=== PATIENT | male | born 1960 | race Caucasian/White ===

== ENCOUNTER 2020-04-22 16:53 | Inpatient (IN) ==
[2020-04-22] MEDS ORDERED: Isovue-370 500 ML BOTTLE IVP ONE (17:52)
[2020-04-22 17:57] LABS: Basophils # 0.1 K/mcL (0.0-0.2); Basophils % 0.5 %; Eosinophils % 0.4 %; Hematocrit 39.1 % (37.5-50.1); Hemoglobin 12.9 g/dL (12.9-16.9); Immature Granulocytes % 0.5 % (0-4); Lymphocytes # 2.9 K/mcL (0.6-4.6); Lymphocytes % 26.5 %; Mean Platelet Volume 10.8 fL (9.4-12.4); Monocytes # 0.9 K/mcL (0.0-1.3); Monocytes % 8.1 %; Platelet Count 411 K/mcL (140-400); Red Blood Count 3.91 M/mcL (4.19-5.50); Red Cell Distribution Width 13.7 % (11.5-14.5); White Blood Count 10.9 K/mcL (4.3-11.1)
[2020-04-22 18:14] LABS: BUN/Creatinine Ratio 15 (6-26); Blood Urea Nitrogen 13 mg/dL (8-23); C-Reactive Protein 10 mg/L (Less than 10); Calcium 9.1 mg/dL (8.6-10.3); Carbon Dioxide 29 mEq/L (23-29); Chloride 96 mEq/L (98-107); Glucose 184 mg/dL (70-105); Osmolality,Calculated 279 (280-300); Potassium 4.3 mEq/L (3.5-5.1); Sodium 132 mEq/L (136-145); eGFR For African Americans > 60 (> 60); eGFR For Non-African Americans > 60 (> 60)
[2020-04-22] MEDS ORDERED: Vancomycin 1,250 MG/262.5 ML IV.SOLN IVPB ONE (18:34)
[2020-04-22] MEDS ORDERED: *HR* HYDROcodone/Acet 5/325 mg TABLET PO ONE (18:35)
[2020-04-22] MEDS ORDERED: *HR* FentaNYL (PF) 100 MCG/2 ML VIAL IVP ONE (19:41)
[2020-04-22] MEDS ORDERED: Naloxone 0.4 MG/ML INJ IVP PRN (20:35)
[2020-04-22] MEDS ORDERED: Acetaminophen 325 MG TABLET PO PRN (20:35)
[2020-04-22] MEDS ORDERED: Ondansetron ODT 4 MG TAB.RAPDIS SL PRN (20:35)
[2020-04-22] MEDS ORDERED: Dextrose Gel 15 GM/37.5 ML TUBE PO PRN ×2 (20:38)
[2020-04-22] MEDS ORDERED: *HR* Dextrose 50 % in Water (Vial) 50 ML VIAL IVP PRN (20:38)
[2020-04-22] MEDS ORDERED: D5% in Water 1,000 ML IVC PRN (20:38)
[2020-04-22] MEDS ORDERED: 0.9 % Sodium Chloride 1,000 ML IVC SCH (20:45)
[2020-04-22] MEDS: Insulin LISPRO 300 UNITS/3 ML VIAL SQ SCH (23:01)
[2020-04-22] MEDS: *HR* Heparin 5,000 UNIT/ML VIAL SQ SCH (23:01)
[2020-04-22] MEDS: ALPRAZolam 1 MG TABLET PO SCH (23:57)
[2020-04-22] MEDS: Pregabalin 50 MG CAPSULE PO SCH (23:57)
[2020-04-23] MEDS: Ketorolac 15 MG/ML VIAL IVP SCH ×4 (00:17→20:03)
[2020-04-23 05:14] LABS: Basophils # 0.1 K/mcL (0.0-0.2); Basophils % 0.7 %; Eosinophils # 0.1 K/mcL (0.0-0.6); Eosinophils % 0.7 %; Hematocrit 35.8 % (37.5-50.1); Hemoglobin 11.8 g/dL (12.9-16.9); Immature Granulocytes % 0.5 % (0-4); Lymphocytes # 2.1 K/mcL (0.6-4.6); Lymphocytes % 25.3 %; Mean Platelet Volume 10.5 fL (9.4-12.4); Monocytes # 0.8 K/mcL (0.0-1.3); Monocytes % 9.1 %; Neutrophils # 5.3 K/mcL (1.6-8.9); Platelet Count 365 K/mcL (140-400); Red Blood Count 3.58 M/mcL (4.19-5.50); Red Cell Distribution Width 13.6 % (11.5-14.5); Segmented Neutrophils % 63.7 %; White Blood Count 8.3 K/mcL (4.3-11.1)
[2020-04-23 05:22] LABS: INR 1.2; Prothrombin Time 13.3 Seconds (9.4-12.1)
[2020-04-23 05:33] LABS: BUN/Creatinine Ratio 18 (6-26); Blood Urea Nitrogen 19 mg/dL (8-23); Calcium 8.8 mg/dL (8.6-10.3); Carbon Dioxide 27 mEq/L (23-29); Chloride 102 mEq/L (98-107); Glucose 321 mg/dL (70-105); Magnesium 1.9 mg/dL (1.6-2.6); Osmolality,Calculated 295 (280-300); Phosphorous 3.8 mg/dL (2.7-4.5); Potassium 4.5 mEq/L (3.5-5.1); Sodium 135 mEq/L (136-145); eGFR For African Americans > 60 (> 60); eGFR For Non-African Americans > 60 (> 60)
[2020-04-23] MEDS: *HR* Heparin 5,000 UNIT/ML VIAL SQ SCH ×3 (06:14→20:01)
[2020-04-23] MEDS: ALPRAZolam 1 MG TABLET PO SCH ×2 (08:49→15:04)
[2020-04-23] MEDS: Famotidine 20 MG TABLET PO SCH (08:49)
[2020-04-23] MEDS: Pregabalin 50 MG CAPSULE PO SCH ×2 (08:49→14:49)
[2020-04-23] MEDS: Insulin LISPRO 300 UNITS/3 ML VIAL SQ SCH ×3 (09:07→20:14)
[2020-04-23] MEDS: Vancomycin 1,250 MG/262.5 ML IV.SOLN IVPB SCH ×2 (09:13→21:04)
[2020-04-23] MEDS: Nicotine 21 MG PATCH.TD24 TD SCH (11:37)
[2020-04-23] MEDS: Pregabalin 75 MG CAPSULE PO SCH (21:12)
[2020-04-23] MEDS: ALPRAZolam 0.5 MG TABLET PO PRN (22:29)
[2020-04-24] MEDS: Ketorolac 15 MG/ML VIAL IVP SCH ×4 (01:09→18:05)
[2020-04-24 01:18] LABS: Hematocrit 34.8 % (37.5-50.1); Hemoglobin 11.4 g/dL (12.9-16.9); Mean Corpuscular HGB Conc 32.8 g/dL (31.6-35.5); Mean Corpuscular Hemoglobin 33.4 pg (28.0-33.3); Mean Corpuscular Volume 102.1 fL (83.0-100.0); Mean Platelet Volume 10.3 fL (9.4-12.4); Platelet Count 328 K/mcL (140-400); Red Blood Count 3.41 M/mcL (4.19-5.50); White Blood Count 9.2 K/mcL (4.3-11.1)
[2020-04-24 01:20] LABS: BUN/Creatinine Ratio 22 (6-26); Blood Urea Nitrogen 24 mg/dL (8-23); Calcium 8.7 mg/dL (8.6-10.3); Carbon Dioxide 25 mEq/L (23-29); Chloride 102 mEq/L (98-107); Glucose 294 mg/dL (70-105); Osmolality,Calculated 293 (280-300); Sodium 134 mEq/L (136-145); eGFR For African Americans > 60 (> 60); eGFR For Non-African Americans > 60 (> 60)
[2020-04-24] MEDS ORDERED: Insulin LISPRO 300 UNITS/3 ML VIAL SQ ONE (04:02)
[2020-04-24] MEDS: *HR* Heparin 5,000 UNIT/ML VIAL SQ SCH ×3 (06:03→21:58)
[2020-04-24] MEDS: Famotidine 20 MG TABLET PO SCH (08:59)
[2020-04-24] MEDS: Pregabalin 75 MG CAPSULE PO SCH ×3 (08:59→20:05)
[2020-04-24] MEDS: Vancomycin 1,250 MG/262.5 ML IV.SOLN IVPB SCH ×2 (09:00→20:05)
[2020-04-24] MEDS: Nicotine 21 MG PATCH.TD24 TD SCH (09:04)
[2020-04-24] MEDS: Insulin LISPRO 300 UNITS/3 ML VIAL SQ SCH ×3 (09:12→18:05)
[2020-04-24] MEDS: ALPRAZolam 0.5 MG TABLET PO PRN (21:58)
[2020-04-25] MEDS: Ketorolac 15 MG/ML VIAL IVP SCH ×4 (00:10→18:12)
[2020-04-25] MEDS: *HR* Heparin 5,000 UNIT/ML VIAL SQ SCH ×3 (06:30→22:19)
[2020-04-25] MEDS: Pregabalin 75 MG CAPSULE PO SCH ×3 (09:00→19:53)
[2020-04-25] MEDS: Famotidine 20 MG TABLET PO SCH (09:00)
[2020-04-25] MEDS: Nicotine 21 MG PATCH.TD24 TD SCH (09:01)
[2020-04-25] MEDS: Vancomycin 1,250 MG/262.5 ML IV.SOLN IVPB SCH ×2 (09:01→19:54)
[2020-04-25] MEDS: Insulin LISPRO 300 UNITS/3 ML VIAL SQ SCH ×3 (09:07→18:18)
[2020-04-25 09:59] LABS: BUN/Creatinine Ratio 21 (6-26); Blood Urea Nitrogen 21 mg/dL (8-23); Calcium 8.8 mg/dL (8.6-10.3); Carbon Dioxide 27 mEq/L (23-29); Chloride 101 mEq/L (98-107); Glucose 341 mg/dL (70-105); Osmolality,Calculated 294 (280-300); Potassium 4.9 mEq/L (3.5-5.1); Sodium 134 mEq/L (136-145); eGFR For African Americans > 60 (> 60); eGFR For Non-African Americans > 60 (> 60)
[2020-04-25] MEDS: *HR* OxyCODONE Immed Rel 5 MG TABLET PO PRN ×2 (10:55→19:53)
[2020-04-25] MEDS ORDERED: D5% in Water 1,000 ML IVC PRN (12:36)
[2020-04-25] MEDS: ALPRAZolam 0.5 MG TABLET PO PRN (22:39)
[2020-04-26] MEDS: Ketorolac 15 MG/ML VIAL IVP SCH ×5 (00:58→23:48)
[2020-04-26 01:45] LABS: BUN/Creatinine Ratio 25 (6-26); Blood Urea Nitrogen 32 mg/dL (8-23); Calcium 8.7 mg/dL (8.6-10.3); Carbon Dioxide 29 mEq/L (23-29); Chloride 100 mEq/L (98-107); Glucose 269 mg/dL (70-105); Osmolality,Calculated 294 (280-300); Sodium 134 mEq/L (136-145); eGFR For African Americans > 60 (> 60); eGFR For Non-African Americans 56 (> 60)
[2020-04-26] MEDS: *HR* Heparin 5,000 UNIT/ML VIAL SQ SCH ×3 (06:02→23:36)
[2020-04-26] MEDS: Pregabalin 75 MG CAPSULE PO SCH ×3 (09:01→23:49)
[2020-04-26] MEDS: Famotidine 20 MG TABLET PO SCH (09:01)
[2020-04-26] MEDS: Insulin LISPRO 300 UNITS/3 ML VIAL SQ SCH ×3 (09:09→17:13)
[2020-04-26] MEDS: Nicotine 21 MG PATCH.TD24 TD SCH (09:10)
[2020-04-26] MEDS: Vancomycin 1,250 MG/262.5 ML IV.SOLN IVPB SCH (09:14)
[2020-04-26] MEDS: ALPRAZolam 0.5 MG TABLET PO PRN (12:12)
[2020-04-26] MEDS ORDERED: Isovue-300 200 mL Infus..BTL ONE ×2 (17:14)
[2020-04-26] MEDS ORDERED: *HR* Heparin 10,000 UNIT/10 ML VIAL ONE (17:14)
[2020-04-26] MEDS ORDERED: 0.9 % Sodium Chloride 1,000 ML ONE ×2 (17:14→17:45)
[2020-04-26] MEDS ORDERED: Heparin 1,000 UNITS/500 mL 500 ML ONE ×2 (17:14→18:47)
[2020-04-26] MEDS ORDERED: *HR* FentaNYL (PF) 100 MCG/2 ML VIAL ONE ×2 (17:42→18:55)
[2020-04-26] MEDS ORDERED: *HR* Midazolam HCl 2 MG/2 ML VIAL ONE ×2 (17:42→18:55)
[2020-04-26] MEDS ORDERED: *HR* Atropine Sulfate 1 MG/10 ML SYRINGE ONE (21:59)
[2020-04-27] MEDS: ALPRAZolam 0.5 MG TABLET PO PRN ×2 (00:44→22:26)
[2020-04-27] MEDS: *HR* HYDROcodone/Acet 5/325 mg TABLET PO PRN ×2 (01:02→14:05)
[2020-04-27] MEDS: Ketorolac 15 MG/ML VIAL IVP SCH ×3 (05:52→17:47)
[2020-04-27] MEDS: *HR* Heparin 5,000 UNIT/ML VIAL SQ SCH ×3 (05:52→22:26)
[2020-04-27 07:33] LABS: BUN/Creatinine Ratio 24 (6-26); Blood Urea Nitrogen 26 mg/dL (8-23); Calcium 8.4 mg/dL (8.6-10.3); Carbon Dioxide 27 mEq/L (23-29); Chloride 101 mEq/L (98-107); Glucose 288 mg/dL (70-105); Osmolality,Calculated 293 (280-300); Potassium 4.9 mEq/L (3.5-5.1); Sodium 134 mEq/L (136-145); eGFR For African Americans > 60 (> 60); eGFR For Non-African Americans > 60 (> 60)
[2020-04-27] MEDS: Insulin LISPRO 300 UNITS/3 ML VIAL SQ SCH ×3 (08:28→17:46)
[2020-04-27] MEDS: Pregabalin 75 MG CAPSULE PO SCH ×3 (08:29→22:26)
[2020-04-27] MEDS: Famotidine 20 MG TABLET PO SCH (08:29)
[2020-04-27] MEDS: Nicotine 21 MG PATCH.TD24 TD SCH ×2 (08:29→22:31)
[2020-04-27 11:22] LABS: Basophils # 0.1 K/mcL (0.0-0.2); Basophils % 0.6 %; Eosinophils # 0.1 K/mcL (0.0-0.6); Eosinophils % 1.4 %; Hematocrit 35.8 % (37.5-50.1); Hemoglobin 11.5 g/dL (12.9-16.9); Immature Granulocytes % 0.3 % (0-4); Lymphocytes # 1.9 K/mcL (0.6-4.6); Lymphocytes % 23.7 %; Mean Corpuscular HGB Conc 32.1 g/dL (31.6-35.5); Mean Corpuscular Volume 102.9 fL (83.0-100.0); Mean Platelet Volume 10.6 fL (9.4-12.4); Monocytes # 0.9 K/mcL (0.0-1.3); Monocytes % 11.8 %; Neutrophils # 4.9 K/mcL (1.6-8.9); Platelet Count 290 K/mcL (140-400); Red Blood Count 3.48 M/mcL (4.19-5.50); Red Cell Distribution Width 13.8 % (11.5-14.5); Segmented Neutrophils % 62.2 %; White Blood Count 7.9 K/mcL (4.3-11.1)
[2020-04-28] MEDS: *HR* Heparin 5,000 UNIT/ML VIAL SQ SCH (06:40)
[2020-04-28 08:27] LABS: Hematocrit 36.3 % (37.5-50.1); Hemoglobin 11.6 g/dL (12.9-16.9); Mean Corpuscular Volume 103.4 fL (83.0-100.0); Mean Platelet Volume 11.1 fL (9.4-12.4); Platelet Count 263 K/mcL (140-400); Red Blood Count 3.51 M/mcL (4.19-5.50); Red Cell Distribution Width 13.6 % (11.5-14.5); White Blood Count 9.7 K/mcL (4.3-11.1)
[2020-04-28 08:49] LABS: BUN/Creatinine Ratio 26 (6-26); Blood Urea Nitrogen 24 mg/dL (8-23); Calcium 8.6 mg/dL (8.6-10.3); Carbon Dioxide 26 mEq/L (23-29); Chloride 104 mEq/L (98-107); Glucose 219 mg/dL (70-105); Osmolality,Calculated 295 (280-300); Potassium 4.9 mEq/L (3.5-5.1); Sodium 137 mEq/L (136-145); eGFR For African Americans > 60 (> 60); eGFR For Non-African Americans > 60 (> 60)
[2020-04-28] MEDS: Famotidine 20 MG TABLET PO SCH (09:02)
[2020-04-28] MEDS: Pregabalin 75 MG CAPSULE PO SCH (09:04)
[2020-04-28] MEDS: Insulin LISPRO 300 UNITS/3 ML VIAL SQ SCH ×2 (09:05→12:58)
[2020-04-28] MEDS: *HR* HYDROcodone/Acet 5/325 mg TABLET PO PRN (09:39)
[2020-04-28 11:00] VITALS: BP 122/73
== END 2020-04-28 14:21 | disposition home or self-care (01) | DRG 629 ==
LOC: 3NENU 16:53 → EMEROOARM 16:53 → SUATTDRO 20:16 → 3NENU 20:51 → SUATTDRO 04-23 17:47 → 2NNU 04-26 18:04 → 3NENU 04-27 09:59
PROVIDERS: ADMIT Student in an Organized Health Care Education/Training Program; ATTEND Internal Medicine

== ENCOUNTER 2020-07-02 11:27 | Inpatient (IN) ==
[2020-07-02] MEDS ORDERED: Vancomycin 1,250 MG/262.5 ML IV.SOLN IVPB ONE (11:42)
[2020-07-02 12:12] LABS: Basophils # 0.1 K/mcL (0.0-0.2); Basophils % 0.5 %; Eosinophils % 0.4 %; Hemoglobin 13.5 g/dL (12.9-16.9); Immature Granulocytes % 0.6 % (0-4); Lymphocytes # 1.6 K/mcL (0.6-4.6); Mean Corpuscular HGB Conc 32.9 g/dL (31.6-35.5); Mean Corpuscular Hemoglobin 31.3 pg (28.0-33.3); Mean Corpuscular Volume 95.1 fL (83.0-100.0); Mean Platelet Volume 10.8 fL (9.4-12.4); Monocytes % 10.1 %; Neutrophils # 7.2 K/mcL (1.6-8.9); Platelet Count 382 K/mcL (140-400); Red Blood Count 4.31 M/mcL (4.19-5.50); Red Cell Distribution Width 14.3 % (11.5-14.5); Segmented Neutrophils % 72.4 %
[2020-07-02 12:22] LABS: INR 1.1; Prothrombin Time 13.1 Seconds (9.4-12.1)
[2020-07-02 12:28] LABS: Calcium 9.3 mg/dL (8.6-10.3); Potassium 4.7 mEq/L (3.5-5.1)
[2020-07-02 12:35] LABS: Anisocytosis 1+ (Not Present); Platelet Estimate Normal (Normal)
[2020-07-02] MEDS ORDERED: *HR* Dextrose 50 % in Water (Vial) 50 ML VIAL IVP PRN (13:41)
[2020-07-02] MEDS ORDERED: Dextrose Gel 15 GM/37.5 ML TUBE PO PRN ×2 (13:41)
[2020-07-02] MEDS ORDERED: D5% in Water 1,000 ML IVC PRN (13:41)
[2020-07-02] MEDS ORDERED: Acetaminophen 325 MG TABLET PO PRN (13:42)
[2020-07-02] MEDS ORDERED: Naloxone 0.4 MG/ML INJ IVP PRN (13:42)
[2020-07-02] MEDS ORDERED: Ondansetron 4 MG/2 ML VIAL IVP PRN (13:42)
[2020-07-02] MEDS ORDERED: 0.9 % Sodium Chloride 1,000 ML IVC SCH (13:45)
[2020-07-02] MEDS ORDERED: Pregabalin 75 MG CAPSULE PO SCH (15:00)
[2020-07-02] MEDS: *HR* OxyCODONE Immed Rel 5 MG TABLET PO PRN (15:35)
[2020-07-02] MEDS: Insulin LISPRO 300 UNITS/3 ML VIAL SUBQ SCH ×2 (17:48→22:25)
[2020-07-02] MEDS: GlipiZIDE 5 MG TABLET PO SCH (17:51)
[2020-07-02] MEDS: Pregabalin 50 MG CAPSULE PO SCH ×3 (22:22→22:36)
[2020-07-02] MEDS: clonazePAM 1 MG TABLET PO SCH (22:23)
[2020-07-02] MEDS: tiZANidine 4 MG TABLET PO PRN (22:23)
[2020-07-02] MEDS: *HR* Heparin 5,000 UNIT/ML VIAL SQ SCH (22:24)
[2020-07-02] MEDS ORDERED: Pantoprazole 40 MG VIAL IVP ONE (22:55)
[2020-07-03] MEDS: *HR* Heparin 5,000 UNIT/ML VIAL SQ SCH ×3 (04:19→20:44)
[2020-07-03] MEDS: *HR* HYDROcodone/Acet 5/325 mg TABLET PO PRN ×2 (05:39→14:55)
[2020-07-03 06:44] LABS: Hematocrit 36.2 % (37.5-50.1); Mean Corpuscular HGB Conc 32.9 g/dL (31.6-35.5); Mean Corpuscular Volume 94.3 fL (83.0-100.0); Platelet Count 353 K/mcL (140-400); Red Blood Count 3.84 M/mcL (4.19-5.50); Red Cell Distribution Width 14.1 % (11.5-14.5); White Blood Count 8.5 K/mcL (4.3-11.1)
[2020-07-03 06:46] LABS: Hemoglobin 11.9 g/dL (12.9-16.9)
[2020-07-03 07:09] LABS: BUN/Creatinine Ratio 20 (6-26); Blood Urea Nitrogen 25 mg/dL (8-23); Calcium 8.8 mg/dL (8.6-10.3); Carbon Dioxide 24 mEq/L (23-29); Chloride 103 mEq/L (98-107); Chol/HDL Ratio 2.9 (0-4.9); Cholesterol 97 mg/dL (< 200); Glucose 111 mg/dL (70-105); HDL Cholesterol 33 mg/dL (40-59); LDL Cholesterol,Calculated 48 mg/dL (< 100); Magnesium 1.9 mg/dL (1.6-2.6); Osmolality,Calculated 283 (280-300); Potassium 4.2 mEq/L (3.5-5.1); Sodium 134 mEq/L (136-145); Triglycerides 81 mg/dL (< 150); eGFR For African Americans > 60 (> 60); eGFR For Non-African Americans 57 (> 60)
[2020-07-03] MEDS: Nicotine 14 MG PATCH.TD24 TD SCH (09:32)
[2020-07-03] MEDS: Famotidine 20 MG TABLET PO SCH (09:33)
[2020-07-03] MEDS: GlipiZIDE 5 MG TABLET PO SCH ×2 (09:33→17:21)
[2020-07-03] MEDS: *HR* OxyCODONE Immed Rel 5 MG TABLET PO PRN (09:33)
[2020-07-03] MEDS: Pregabalin 50 MG CAPSULE PO SCH ×3 (09:33→20:43)
[2020-07-03] MEDS: lisinopriL 10 MG TABLET PO SCH (09:34)
[2020-07-03] MEDS: Insulin LISPRO 300 UNITS/3 ML VIAL SUBQ SCH ×4 (09:35→20:41)
[2020-07-03] MEDS: Metoprolol XL (24 HR) Succ 25 MG TAB.ER.24H PO SCH (09:35)
[2020-07-03] MEDS: clonazePAM 1 MG TABLET PO SCH ×2 (09:35→20:44)
[2020-07-03 10:08] LABS: Estimated Average Glucose 186 mg/dl; Hemoglobin A1C 8.1 %
[2020-07-03] MEDS ORDERED: Cefepime HCl 2,000 MG in Water for inj. (sterile) 20 ML IVP SCH ×2 (14:18→14:37)
[2020-07-04] MEDS: *HR* OxyCODONE Immed Rel 5 MG TABLET PO PRN ×2 (05:14→11:35)
[2020-07-04] MEDS: *HR* Heparin 5,000 UNIT/ML VIAL SQ SCH ×3 (06:10→21:37)
[2020-07-04] MEDS: Famotidine 20 MG TABLET PO SCH (10:19)
[2020-07-04] MEDS: GlipiZIDE 5 MG TABLET PO SCH ×2 (10:21→17:47)
[2020-07-04] MEDS: lisinopriL 10 MG TABLET PO SCH (10:22)
[2020-07-04] MEDS: Pregabalin 50 MG CAPSULE PO SCH ×3 (10:23→21:36)
[2020-07-04] MEDS: Metoprolol XL (24 HR) Succ 25 MG TAB.ER.24H PO SCH (10:23)
[2020-07-04] MEDS: clonazePAM 1 MG TABLET PO SCH ×2 (10:24→21:36)
[2020-07-04] MEDS: Nicotine 14 MG PATCH.TD24 TD SCH ×2 (10:25→11:11)
[2020-07-04] MEDS: Insulin LISPRO 300 UNITS/3 ML VIAL SUBQ SCH ×4 (10:30→21:41)
[2020-07-04 10:56] LABS: Hematocrit 42.3 % (37.5-50.1); Hemoglobin 13.1 g/dL (12.9-16.9); Mean Corpuscular Hemoglobin 30.3 pg (28.0-33.3); Mean Corpuscular Volume 97.7 fL (83.0-100.0); Mean Platelet Volume 10.9 fL (9.4-12.4); Platelet Count 384 K/mcL (140-400); Red Blood Count 4.33 M/mcL (4.19-5.50); Red Cell Distribution Width 14.1 % (11.5-14.5); White Blood Count 8.5 K/mcL (4.3-11.1)
[2020-07-04 11:08] LABS: BUN/Creatinine Ratio 19 (6-26); Blood Urea Nitrogen 22 mg/dL (8-23); Calcium 9.3 mg/dL (8.6-10.3); Carbon Dioxide 27 mEq/L (23-29); Chloride 101 mEq/L (98-107); Glucose 180 mg/dL (70-105); Osmolality,Calculated 288 (280-300); Potassium 4.2 mEq/L (3.5-5.1); Sodium 135 mEq/L (136-145); eGFR For African Americans > 60 (> 60); eGFR For Non-African Americans > 60 (> 60)
[2020-07-04] MEDS: polyethylene glycoL 3350 17 GM POWD.PACK PO SCH (11:36)
[2020-07-04] MEDS: Nicotine 21 MG PATCH.TD24 TD SCH (11:36)
[2020-07-04] MEDS ORDERED: D5% in Water 1,000 ML IVC PRN (20:05)
[2020-07-04] MEDS ORDERED: *HR* Dextrose 50 % in Water (Vial) 50 ML VIAL IVP PRN (20:05)
[2020-07-04] MEDS ORDERED: Dextrose Gel 15 GM/37.5 ML TUBE PO PRN ×2 (20:05)
[2020-07-04] MEDS: tiZANidine 4 MG TABLET PO PRN (21:36)
[2020-07-05 05:17] LABS: Hemoglobin 12.6 g/dL (12.9-16.9); Mean Corpuscular HGB Conc 32.3 g/dL (31.6-35.5); Mean Corpuscular Hemoglobin 30.7 pg (28.0-33.3); Mean Corpuscular Volume 94.9 fL (83.0-100.0); Mean Platelet Volume 11.4 fL (9.4-12.4); Platelet Count 373 K/mcL (140-400); Red Blood Count 4.11 M/mcL (4.19-5.50); Red Cell Distribution Width 13.8 % (11.5-14.5); White Blood Count 11.5 K/mcL (4.3-11.1)
[2020-07-05] MEDS: *HR* OxyCODONE Immed Rel 5 MG TABLET PO PRN (05:17)
[2020-07-05] MEDS: *HR* Heparin 5,000 UNIT/ML VIAL SQ SCH ×2 (05:18→21:51)
[2020-07-05 05:31] LABS: BUN/Creatinine Ratio 25 (6-26); Blood Urea Nitrogen 28 mg/dL (8-23); Carbon Dioxide 24 mEq/L (23-29); Chloride 104 mEq/L (98-107); Glucose 173 mg/dL (70-105); Osmolality,Calculated 292 (280-300); Potassium 4.6 mEq/L (3.5-5.1); Sodium 136 mEq/L (136-145); eGFR For African Americans > 60 (> 60); eGFR For Non-African Americans > 60 (> 60)
[2020-07-05] MEDS: Famotidine 20 MG TABLET PO SCH (08:54)
[2020-07-05] MEDS: GlipiZIDE 5 MG TABLET PO SCH (08:54)
[2020-07-05] MEDS: clonazePAM 1 MG TABLET PO SCH ×2 (08:54→21:50)
[2020-07-05] MEDS: Metoprolol XL (24 HR) Succ 25 MG TAB.ER.24H PO SCH (08:54)
[2020-07-05] MEDS: Pregabalin 50 MG CAPSULE PO SCH ×2 (08:55→21:50)
[2020-07-05] MEDS: Nicotine 21 MG PATCH.TD24 TD SCH (09:05)
[2020-07-05] MEDS: polyethylene glycoL 3350 17 GM POWD.PACK PO SCH (09:05)
[2020-07-05] MEDS: lisinopriL 10 MG TABLET PO SCH (09:06)
[2020-07-05] MEDS ORDERED: *HR* FentaNYL (PF) 100 MCG/2 ML VIAL ONE ×2 (12:56→17:24)
[2020-07-05] MEDS ORDERED: *HR* Succinylcholine 200 MG/10 ML VIAL IVP ONE ×2 (12:56→16:58)
[2020-07-05] MEDS ORDERED: *HR* Midazolam HCl 2 MG/2 ML VIAL ONE (12:56)
[2020-07-05] MEDS ORDERED: Ondansetron 4 MG/2 ML VIAL ONE ×2 (12:56→16:58)
[2020-07-05] MEDS ORDERED: Lidocaine -MPF 2% 2 ML VIAL ONE ×2 (12:56→17:24)
[2020-07-05] MEDS ORDERED: *HR* Rocuronium Bromide 50 MG/5 ML VIAL ONE (12:56)
[2020-07-05] MEDS ORDERED: Bupivacaine/Clonidine Syringe 20 ML, Syringe LUER-LOK 1 EACH TP ONE (13:15)
[2020-07-05] MEDS ORDERED: ROPIVACAINE/PF/NS 0.25% 1 EACH SYRINGE INTRAART ONE (16:51)
[2020-07-05] MEDS ORDERED: *HR* Vasopressin 20 UNIT/ML VIAL ONE (17:38)
[2020-07-05] MEDS ORDERED: *HR* Dextrose 50 % in Water (Vial) 50 ML VIAL IVP PRN (19:59)
[2020-07-05] MEDS ORDERED: D5% in Water 1,000 ML IVC PRN (19:59)
[2020-07-05] MEDS ORDERED: Naloxone 0.4 MG/ML INJ IVP PRN (19:59)
[2020-07-05] MEDS ORDERED: Dextrose Gel 15 GM/37.5 ML TUBE PO PRN ×2 (19:59)
[2020-07-05] MEDS ORDERED: Acetaminophen 325 MG TABLET PO PRN (20:50)
[2020-07-05] MEDS ORDERED: Ondansetron 4 MG/2 ML VIAL IVP PRN (20:55)
[2020-07-05] MEDS ORDERED: Insulin LISPRO 300 UNITS/3 ML VIAL SUBQ SCH (21:00)
[2020-07-06] MEDS: *HR* OxyCODONE Immed Rel 5 MG TABLET PO PRN ×3 (02:55→20:02)
[2020-07-06] MEDS: tiZANidine 4 MG TABLET PO PRN (03:49)
[2020-07-06 04:36] LABS: Hematocrit 37.4 % (37.5-50.1); Hemoglobin 11.9 g/dL (12.9-16.9); Mean Corpuscular HGB Conc 31.8 g/dL (31.6-35.5); Mean Corpuscular Hemoglobin 30.3 pg (28.0-33.3); Mean Corpuscular Volume 95.2 fL (83.0-100.0); Platelet Count 422 K/mcL (140-400); Red Blood Count 3.93 M/mcL (4.19-5.50); Red Cell Distribution Width 13.9 % (11.5-14.5); White Blood Count 9.3 K/mcL (4.3-11.1)
[2020-07-06 04:53] LABS: BUN/Creatinine Ratio 20 (6-26); Blood Urea Nitrogen 24 mg/dL (8-23); Calcium 8.7 mg/dL (8.6-10.3); Carbon Dioxide 24 mEq/L (23-29); Chloride 100 mEq/L (98-107); Glucose 448 mg/dL (70-105); Osmolality,Calculated 299 (280-300); Potassium 4.5 mEq/L (3.5-5.1); Sodium 133 mEq/L (136-145); eGFR For African Americans > 60 (> 60); eGFR For Non-African Americans > 60 (> 60)
[2020-07-06 05:32] LABS: C-Reactive Protein 43 mg/L (Less than 10)
[2020-07-06] MEDS: *HR* Heparin 5,000 UNIT/ML VIAL SQ SCH ×3 (06:15→21:39)
[2020-07-06] MEDS: Nicotine 21 MG PATCH.TD24 TD SCH (08:04)
[2020-07-06] MEDS: Pregabalin 50 MG CAPSULE PO SCH ×3 (08:06→20:03)
[2020-07-06] MEDS: GlipiZIDE 5 MG TABLET PO SCH ×2 (08:07→18:21)
[2020-07-06] MEDS: lisinopriL 10 MG TABLET PO SCH (08:08)
[2020-07-06] MEDS: clonazePAM 1 MG TABLET PO SCH ×2 (08:09→20:02)
[2020-07-06] MEDS: Famotidine 20 MG TABLET PO SCH (08:09)
[2020-07-06] MEDS: Metoprolol XL (24 HR) Succ 25 MG TAB.ER.24H PO SCH (08:09)
[2020-07-06] MEDS: Insulin LISPRO 300 UNITS/3 ML VIAL SUBQ SCH ×4 (08:10→20:07)
[2020-07-06] MEDS: polyethylene glycoL 3350 17 GM POWD.PACK PO SCH (08:11)
[2020-07-06] MEDS ORDERED: Vancomycin 1,250 MG/262.5 ML IV.SOLN IVPB SCH (09:00)
[2020-07-06] MEDS: levoFLOXacin 750 MG/150 ML 750 MG/150 ML BAG IVPB SCH (12:20)
[2020-07-06] MEDS ORDERED: D5% in Water 1,000 ML IVC PRN (14:32)
[2020-07-06] MEDS ORDERED: *HR* Dextrose 50 % in Water (Vial) 50 ML VIAL IVP PRN (14:32)
[2020-07-06] MEDS ORDERED: Dextrose Gel 15 GM/37.5 ML TUBE PO PRN ×2 (14:32)
[2020-07-06] MEDS ORDERED: Cefepime HCl 2,000 MG in Water for inj. (sterile) 20 ML IVP SCH (18:00)
[2020-07-06] MEDS: metroNIDAZOLE 500 MG TABLET PO SCH ×2 (18:21→19:49)
[2020-07-06] MEDS: Insulin DETEMIR 100 UNIT/ML X5UNITS SUBQ SCH (21:39)
[2020-07-06] MEDS ORDERED: Benzonatate 100 MG CAPSULE PO PRN (22:54)
[2020-07-07 04:45] LABS: Hematocrit 37.7 % (37.5-50.1); Hemoglobin 11.9 g/dL (12.9-16.9); Mean Corpuscular HGB Conc 31.6 g/dL (31.6-35.5); Mean Corpuscular Hemoglobin 30.2 pg (28.0-33.3); Mean Corpuscular Volume 95.7 fL (83.0-100.0); Mean Platelet Volume 10.5 fL (9.4-12.4); Platelet Count 413 K/mcL (140-400); Red Blood Count 3.94 M/mcL (4.19-5.50); Red Cell Distribution Width 13.9 % (11.5-14.5); White Blood Count 9.8 K/mcL (4.3-11.1)
[2020-07-07 05:08] LABS: BUN/Creatinine Ratio 17 (6-26); Blood Urea Nitrogen 20 mg/dL (8-23); Carbon Dioxide 28 mEq/L (23-29); Chloride 102 mEq/L (98-107); Glucose 259 mg/dL (70-105); Osmolality,Calculated 296 (280-300); Potassium 4.1 mEq/L (3.5-5.1); Sodium 137 mEq/L (136-145); eGFR For African Americans > 60 (> 60); eGFR For Non-African Americans > 60 (> 60)
[2020-07-07] MEDS: *HR* Heparin 5,000 UNIT/ML VIAL SQ SCH ×3 (05:35→20:13)
[2020-07-07] MEDS: polyethylene glycoL 3350 17 GM POWD.PACK PO SCH (08:42)
[2020-07-07] MEDS: Nicotine 21 MG PATCH.TD24 TD SCH (08:43)
[2020-07-07] MEDS: lisinopriL 10 MG TABLET PO SCH (08:46)
[2020-07-07] MEDS: Metoprolol XL (24 HR) Succ 25 MG TAB.ER.24H PO SCH (08:47)
[2020-07-07] MEDS: Pregabalin 50 MG CAPSULE PO SCH ×3 (08:47→20:12)
[2020-07-07] MEDS: clonazePAM 1 MG TABLET PO SCH ×2 (08:47→20:13)
[2020-07-07] MEDS: GlipiZIDE 5 MG TABLET PO SCH ×2 (08:47→18:10)
[2020-07-07] MEDS: metroNIDAZOLE 500 MG TABLET PO SCH ×3 (08:48→20:12)
[2020-07-07] MEDS: Famotidine 20 MG TABLET PO SCH (08:48)
[2020-07-07] MEDS: Insulin LISPRO 300 UNITS/3 ML VIAL SUBQ SCH ×5 (08:50→22:07)
[2020-07-07] MEDS: levoFLOXacin 750 MG/150 ML 750 MG/150 ML BAG IVPB SCH (10:18)
[2020-07-07] MEDS: *HR* OxyCODONE Immed Rel 5 MG TABLET PO PRN ×2 (13:50→20:13)
[2020-07-07] MEDS: Insulin DETEMIR 100 UNIT/ML X5UNITS SUBQ SCH (20:13)
[2020-07-08 01:45] LABS: Mean Corpuscular HGB Conc 32.5 g/dL (31.6-35.5); Mean Corpuscular Hemoglobin 31.3 pg (28.0-33.3); Mean Corpuscular Volume 96.2 fL (83.0-100.0); Mean Platelet Volume 10.8 fL (9.4-12.4); Platelet Count 477 K/mcL (140-400); Red Blood Count 4.16 M/mcL (4.19-5.50); Red Cell Distribution Width 14.2 % (11.5-14.5); White Blood Count 10.6 K/mcL (4.3-11.1)
[2020-07-08 02:05] LABS: BUN/Creatinine Ratio 24 (6-26); Blood Urea Nitrogen 28 mg/dL (8-23); Calcium 9.2 mg/dL (8.6-10.3); Carbon Dioxide 27 mEq/L (23-29); Chloride 100 mEq/L (98-107); Glucose 182 mg/dL (70-105); Osmolality,Calculated 292 (280-300); Potassium 4.1 mEq/L (3.5-5.1); Sodium 136 mEq/L (136-145); eGFR For African Americans > 60 (> 60); eGFR For Non-African Americans > 60 (> 60)
[2020-07-08] MEDS: *HR* Heparin 5,000 UNIT/ML VIAL SQ SCH ×3 (06:38→20:47)
[2020-07-08] MEDS: *HR* OxyCODONE Immed Rel 5 MG TABLET PO PRN (06:38)
[2020-07-08] MEDS: Insulin LISPRO 300 UNITS/3 ML VIAL SUBQ SCH ×4 (09:42→20:50)
[2020-07-08] MEDS: metroNIDAZOLE 500 MG TABLET PO SCH ×3 (09:45→20:47)
[2020-07-08] MEDS: Famotidine 20 MG TABLET PO SCH (09:45)
[2020-07-08] MEDS: Metoprolol XL (24 HR) Succ 25 MG TAB.ER.24H PO SCH (09:45)
[2020-07-08] MEDS: GlipiZIDE 5 MG TABLET PO SCH ×2 (09:46→17:44)
[2020-07-08] MEDS: clonazePAM 1 MG TABLET PO SCH ×2 (09:46→20:47)
[2020-07-08] MEDS: Nicotine 21 MG PATCH.TD24 TD SCH (09:47)
[2020-07-08] MEDS: Pregabalin 50 MG CAPSULE PO SCH ×3 (09:47→20:46)
[2020-07-08] MEDS: lisinopriL 10 MG TABLET PO SCH (09:47)
[2020-07-08] MEDS: polyethylene glycoL 3350 17 GM POWD.PACK PO SCH (09:48)
[2020-07-08] MEDS: levoFLOXacin 750 MG/150 ML 750 MG/150 ML BAG IVPB SCH (09:48)
[2020-07-08] MEDS ORDERED: Lidocaine -MPF 1% 5 ML AMPUL INFILT ONE (11:18)
[2020-07-08] MEDS: *HR* HYDROcodone/Acet 5/325 mg TABLET PO PRN (15:29)
[2020-07-08] MEDS: Insulin DETEMIR 100 UNIT/ML X5UNITS SUBQ SCH (20:47)
[2020-07-09] MEDS: *HR* Heparin 5,000 UNIT/ML VIAL SQ SCH ×3 (05:08→21:31)
[2020-07-09] MEDS: Famotidine 20 MG TABLET PO SCH ×2 (05:08→16:39)
[2020-07-09 05:20] LABS: Hematocrit 39.7 % (37.5-50.1); Hemoglobin 12.9 g/dL (12.9-16.9); Mean Corpuscular HGB Conc 32.5 g/dL (31.6-35.5); Mean Corpuscular Hemoglobin 30.4 pg (28.0-33.3); Mean Corpuscular Volume 93.6 fL (83.0-100.0); Mean Platelet Volume 10.6 fL (9.4-12.4); Platelet Count 471 K/mcL (140-400); Red Blood Count 4.24 M/mcL (4.19-5.50); Red Cell Distribution Width 14.2 % (11.5-14.5); White Blood Count 8.7 K/mcL (4.3-11.1)
[2020-07-09 05:30] LABS: BUN/Creatinine Ratio 30 (6-26); Blood Urea Nitrogen 34 mg/dL (8-23); Carbon Dioxide 23 mEq/L (23-29); Chloride 103 mEq/L (98-107); Glucose 144 mg/dL (70-105); Osmolality,Calculated 292 (280-300); Potassium 4.1 mEq/L (3.5-5.1); Sodium 136 mEq/L (136-145); eGFR For African Americans > 60 (> 60); eGFR For Non-African Americans > 60 (> 60)
[2020-07-09] MEDS: *HR* OxyCODONE Immed Rel 5 MG TABLET PO PRN ×2 (10:53→21:32)
[2020-07-09] MEDS: Pregabalin 50 MG CAPSULE PO SCH ×3 (10:53→21:31)
[2020-07-09] MEDS: polyethylene glycoL 3350 17 GM POWD.PACK PO SCH (10:53)
[2020-07-09] MEDS: tiZANidine 4 MG TABLET PO PRN (10:54)
[2020-07-09] MEDS: Metoprolol XL (24 HR) Succ 25 MG TAB.ER.24H PO SCH (10:54)
[2020-07-09] MEDS: metroNIDAZOLE 500 MG TABLET PO SCH ×3 (10:54→21:32)
[2020-07-09] MEDS: clonazePAM 1 MG TABLET PO SCH ×2 (10:55→21:32)
[2020-07-09] MEDS: GlipiZIDE 5 MG TABLET PO SCH ×2 (10:55→16:39)
[2020-07-09] MEDS: lisinopriL 10 MG TABLET PO SCH (10:56)
[2020-07-09] MEDS: Nicotine 21 MG PATCH.TD24 TD SCH (10:57)
[2020-07-09] MEDS: levoFLOXacin 750 MG/150 ML 750 MG/150 ML BAG IVPB SCH (11:05)
[2020-07-09] MEDS: Insulin LISPRO 300 UNITS/3 ML VIAL SUBQ SCH ×4 (11:30→21:37)
[2020-07-09] MEDS: Vancomycin 1,250 MG/262.5 ML IV.SOLN IVPB SCH ×2 (11:31→21:31)
[2020-07-09] MEDS: Insulin DETEMIR 100 UNIT/ML X5UNITS SUBQ SCH (21:36)
[2020-07-10] MEDS: *HR* Heparin 5,000 UNIT/ML VIAL SQ SCH ×3 (05:51→20:49)
[2020-07-10 06:13] LABS: Hematocrit 36.1 % (37.5-50.1); Hemoglobin 11.9 g/dL (12.9-16.9); Mean Corpuscular Hemoglobin 31.2 pg (28.0-33.3); Mean Corpuscular Volume 94.8 fL (83.0-100.0); Mean Platelet Volume 10.6 fL (9.4-12.4); Platelet Count 434 K/mcL (140-400); Red Blood Count 3.81 M/mcL (4.19-5.50); Red Cell Distribution Width 14.4 % (11.5-14.5); White Blood Count 9.1 K/mcL (4.3-11.1)
[2020-07-10 07:14] LABS: BUN/Creatinine Ratio 28 (6-26); Blood Urea Nitrogen 32 mg/dL (8-23); Calcium 8.7 mg/dL (8.6-10.3); Carbon Dioxide 25 mEq/L (23-29); Chloride 102 mEq/L (98-107); Glucose 301 mg/dL (70-105); Osmolality,Calculated 296 (280-300); Potassium 4.4 mEq/L (3.5-5.1); Sodium 134 mEq/L (136-145); eGFR For African Americans > 60 (> 60); eGFR For Non-African Americans > 60 (> 60)
[2020-07-10] MEDS: levoFLOXacin 750 MG/150 ML 750 MG/150 ML BAG IVPB SCH (08:28)
[2020-07-10] MEDS: Vancomycin 1,250 MG/262.5 ML IV.SOLN IVPB SCH (08:29)
[2020-07-10] MEDS: Pregabalin 50 MG CAPSULE PO SCH ×3 (08:30→20:50)
[2020-07-10] MEDS: GlipiZIDE 5 MG TABLET PO SCH ×2 (08:30→17:35)
[2020-07-10] MEDS: Metoprolol XL (24 HR) Succ 25 MG TAB.ER.24H PO SCH (08:30)
[2020-07-10] MEDS: lisinopriL 10 MG TABLET PO SCH (08:31)
[2020-07-10] MEDS: Famotidine 20 MG TABLET PO SCH ×2 (08:31→16:09)
[2020-07-10] MEDS: polyethylene glycoL 3350 17 GM POWD.PACK PO SCH (08:32)
[2020-07-10] MEDS: clonazePAM 1 MG TABLET PO SCH ×2 (08:32→20:50)
[2020-07-10] MEDS: Nicotine 21 MG PATCH.TD24 TD SCH (08:32)
[2020-07-10] MEDS: *HR* OxyCODONE Immed Rel 5 MG TABLET PO PRN (08:37)
[2020-07-10] MEDS: metroNIDAZOLE 500 MG TABLET PO SCH ×3 (10:51→20:50)
[2020-07-10] MEDS: Insulin LISPRO 300 UNITS/3 ML VIAL SUBQ SCH ×4 (11:12→20:40)
[2020-07-10] MEDS: Insulin DETEMIR 100 UNIT/ML X5UNITS SUBQ SCH (20:48)
[2020-07-10] MEDS: Vancomycin 1,500 MG/265 ML IV.SOLN IVPB SCH (21:37)
[2020-07-11 03:29] LABS: Hematocrit 38.5 % (37.5-50.1); Hemoglobin 12.4 g/dL (12.9-16.9); Mean Corpuscular HGB Conc 32.2 g/dL (31.6-35.5); Mean Corpuscular Hemoglobin 30.2 pg (28.0-33.3); Mean Corpuscular Volume 93.9 fL (83.0-100.0); Mean Platelet Volume 10.6 fL (9.4-12.4); Platelet Count 454 K/mcL (140-400); Red Cell Distribution Width 14.4 % (11.5-14.5); White Blood Count 9.8 K/mcL (4.3-11.1)
[2020-07-11 03:48] LABS: BUN/Creatinine Ratio 28 (6-26); Blood Urea Nitrogen 33 mg/dL (8-23); Calcium 8.7 mg/dL (8.6-10.3); Carbon Dioxide 25 mEq/L (23-29); Chloride 104 mEq/L (98-107); Glucose 101 mg/dL (70-105); Osmolality,Calculated 289 (280-300); Potassium 4.6 mEq/L (3.5-5.1); Sodium 136 mEq/L (136-145); eGFR For African Americans > 60 (> 60); eGFR For Non-African Americans > 60 (> 60)
[2020-07-11] MEDS: *HR* Heparin 5,000 UNIT/ML VIAL SQ SCH ×3 (05:08→21:40)
[2020-07-11] MEDS: levoFLOXacin 750 MG/150 ML 750 MG/150 ML BAG IVPB SCH (07:41)
[2020-07-11] MEDS: Famotidine 20 MG TABLET PO SCH ×2 (07:42→16:33)
[2020-07-11] MEDS: GlipiZIDE 5 MG TABLET PO SCH ×2 (07:48→17:34)
[2020-07-11] MEDS: Metoprolol XL (24 HR) Succ 25 MG TAB.ER.24H PO SCH (07:49)
[2020-07-11] MEDS: Pregabalin 50 MG CAPSULE PO SCH ×3 (07:49→21:39)
[2020-07-11] MEDS: clonazePAM 1 MG TABLET PO SCH ×2 (07:49→21:39)
[2020-07-11] MEDS: lisinopriL 10 MG TABLET PO SCH (07:49)
[2020-07-11] MEDS: metroNIDAZOLE 500 MG TABLET PO SCH ×3 (07:49→21:39)
[2020-07-11] MEDS: Insulin LISPRO 300 UNITS/3 ML VIAL SUBQ SCH ×4 (07:49→21:47)
[2020-07-11] MEDS: Nicotine 21 MG PATCH.TD24 TD SCH (07:50)
[2020-07-11] MEDS: Vancomycin 1,500 MG/265 ML IV.SOLN IVPB SCH ×2 (09:29→21:44)
[2020-07-11] MEDS: polyethylene glycoL 3350 17 GM POWD.PACK PO SCH (09:29)
[2020-07-11] MEDS: *HR* OxyCODONE Immed Rel 5 MG TABLET PO PRN ×2 (11:01→21:39)
[2020-07-11] MEDS: Insulin DETEMIR 100 UNIT/ML X5UNITS SUBQ SCH (21:45)
[2020-07-12] MEDS ORDERED: hydrOXYzine pamoate 25 MG CAPSULE PO PRN (02:25)
[2020-07-12] MEDS: *HR* Heparin 5,000 UNIT/ML VIAL SQ SCH ×3 (06:14→21:59)
[2020-07-12] MEDS: Insulin LISPRO 300 UNITS/3 ML VIAL SUBQ SCH ×4 (09:32→21:59)
[2020-07-12] MEDS: Famotidine 20 MG TABLET PO SCH ×2 (09:33→17:39)
[2020-07-12] MEDS: Metoprolol XL (24 HR) Succ 25 MG TAB.ER.24H PO SCH (09:33)
[2020-07-12] MEDS: clonazePAM 1 MG TABLET PO SCH ×2 (09:33→21:58)
[2020-07-12] MEDS: lisinopriL 10 MG TABLET PO SCH (09:33)
[2020-07-12] MEDS: Pregabalin 50 MG CAPSULE PO SCH ×3 (09:34→21:59)
[2020-07-12] MEDS: Nicotine 21 MG PATCH.TD24 TD SCH (09:34)
[2020-07-12] MEDS: GlipiZIDE 5 MG TABLET PO SCH ×2 (09:34→17:39)
[2020-07-12] MEDS: polyethylene glycoL 3350 17 GM POWD.PACK PO SCH (09:34)
[2020-07-12] MEDS: levoFLOXacin 750 MG/150 ML 750 MG/150 ML BAG IVPB SCH (09:35)
[2020-07-12] MEDS: *HR* OxyCODONE Immed Rel 5 MG TABLET PO PRN ×2 (09:41→17:44)
[2020-07-12] MEDS: Vancomycin 1,250 MG/262.5 ML IV.SOLN IVPB SCH ×2 (10:01→22:00)
[2020-07-12] MEDS: metroNIDAZOLE 500 MG TABLET PO SCH ×3 (10:01→21:57)
[2020-07-12] MEDS: Insulin DETEMIR 100 UNIT/ML X5UNITS SUBQ SCH (22:00)
[2020-07-13] MEDS: *HR* Heparin 5,000 UNIT/ML VIAL SQ SCH ×3 (06:18→20:41)
[2020-07-13] MEDS: GlipiZIDE 5 MG TABLET PO SCH ×2 (08:44→17:27)
[2020-07-13] MEDS: *HR* OxyCODONE Immed Rel 5 MG TABLET PO PRN ×2 (08:45→17:26)
[2020-07-13] MEDS: Famotidine 20 MG TABLET PO SCH ×2 (08:46→17:25)
[2020-07-13] MEDS: Metoprolol XL (24 HR) Succ 25 MG TAB.ER.24H PO SCH (08:47)
[2020-07-13] MEDS: clonazePAM 1 MG TABLET PO SCH ×2 (08:47→20:42)
[2020-07-13] MEDS: Pregabalin 50 MG CAPSULE PO SCH ×3 (08:48→20:41)
[2020-07-13] MEDS: lisinopriL 10 MG TABLET PO SCH (08:49)
[2020-07-13] MEDS: metroNIDAZOLE 500 MG TABLET PO SCH (08:49)
[2020-07-13] MEDS: levoFLOXacin 750 MG/150 ML 750 MG/150 ML BAG IVPB SCH (08:51)
[2020-07-13] MEDS: Nicotine 21 MG PATCH.TD24 TD SCH (08:54)
[2020-07-13] MEDS: polyethylene glycoL 3350 17 GM POWD.PACK PO SCH (08:55)
[2020-07-13] MEDS: Insulin LISPRO 300 UNITS/3 ML VIAL SUBQ SCH ×4 (09:55→20:42)
[2020-07-13] MEDS: Vancomycin 1,250 MG/262.5 ML IV.SOLN IVPB SCH ×2 (12:44→20:47)
[2020-07-13 12:48] LABS: BUN/Creatinine Ratio 28 (6-26); Blood Urea Nitrogen 33 mg/dL (8-23); C-Reactive Protein < 5 mg/L (Less than 10); Carbon Dioxide 23 mEq/L (23-29); Chloride 102 mEq/L (98-107); Glucose 263 mg/dL (70-105); Osmolality,Calculated 292 (280-300); Potassium 5.1 mEq/L (3.5-5.1); Sodium 133 mEq/L (136-145); eGFR For African Americans > 60 (> 60); eGFR For Non-African Americans > 60 (> 60)
[2020-07-13 13:46] LABS: Basophils # 0.1 K/mcL (0.0-0.2); Basophils % 0.9 %; Eosinophils # 0.1 K/mcL (0.0-0.6); Hematocrit 41.9 % (37.5-50.1); Hemoglobin 13.3 g/dL (12.9-16.9); Immature Granulocytes % 1.3 % (0-4); Lymphocytes # 3.2 K/mcL (0.6-4.6); Lymphocytes % 28.1 %; Mean Corpuscular HGB Conc 31.7 g/dL (31.6-35.5); Mean Corpuscular Hemoglobin 30.4 pg (28.0-33.3); Mean Corpuscular Volume 95.7 fL (83.0-100.0); Mean Platelet Volume 10.9 fL (9.4-12.4); Monocytes # 1.1 K/mcL (0.0-1.3); Monocytes % 9.4 %; Neutrophils # 6.8 K/mcL (1.6-8.9); Platelet Count 435 K/mcL (140-400); Red Blood Count 4.38 M/mcL (4.19-5.50); Red Cell Distribution Width 14.7 % (11.5-14.5); Segmented Neutrophils % 59.3 %; White Blood Count 11.5 K/mcL (4.3-11.1)
[2020-07-13] MEDS: Insulin DETEMIR 100 UNIT/ML X5UNITS SUBQ SCH (20:41)
[2020-07-13] MEDS: Nystatin POWDER 30 GM BOTTLE TP SCH (20:45)
[2020-07-14] MEDS: *HR* OxyCODONE Immed Rel 5 MG TABLET PO PRN ×3 (03:15→20:13)
[2020-07-14] MEDS: *HR* Heparin 5,000 UNIT/ML VIAL SQ SCH ×3 (04:32→22:07)
[2020-07-14 04:59] LABS: Hematocrit 38.3 % (37.5-50.1); Hemoglobin 12.4 g/dL (12.9-16.9); Mean Corpuscular HGB Conc 32.4 g/dL (31.6-35.5); Mean Corpuscular Hemoglobin 30.5 pg (28.0-33.3); Mean Corpuscular Volume 94.1 fL (83.0-100.0); Platelet Count 423 K/mcL (140-400); Red Blood Count 4.07 M/mcL (4.19-5.50); Red Cell Distribution Width 14.8 % (11.5-14.5); White Blood Count 12.2 K/mcL (4.3-11.1)
[2020-07-14 05:15] LABS: BUN/Creatinine Ratio 31 (6-26); Blood Urea Nitrogen 36 mg/dL (8-23); Calcium 8.6 mg/dL (8.6-10.3); Carbon Dioxide 26 mEq/L (23-29); Chloride 103 mEq/L (98-107); Glucose 204 mg/dL (70-105); Osmolality,Calculated 292 (280-300); Potassium 4.6 mEq/L (3.5-5.1); Sodium 134 mEq/L (136-145); eGFR For African Americans > 60 (> 60); eGFR For Non-African Americans > 60 (> 60)
[2020-07-14] MEDS: Nicotine 21 MG PATCH.TD24 TD SCH (09:31)
[2020-07-14] MEDS: polyethylene glycoL 3350 17 GM POWD.PACK PO SCH (09:31)
[2020-07-14] MEDS: Famotidine 20 MG TABLET PO SCH ×2 (09:31→15:53)
[2020-07-14] MEDS: lisinopriL 10 MG TABLET PO SCH (09:32)
[2020-07-14] MEDS: Pregabalin 50 MG CAPSULE PO SCH ×3 (09:32→19:50)
[2020-07-14] MEDS: GlipiZIDE 5 MG TABLET PO SCH ×2 (09:32→17:49)
[2020-07-14] MEDS: clonazePAM 1 MG TABLET PO SCH ×2 (09:33→19:50)
[2020-07-14] MEDS: levoFLOXacin 750 MG/150 ML 750 MG/150 ML BAG IVPB SCH (09:33)
[2020-07-14] MEDS: Metoprolol XL (24 HR) Succ 25 MG TAB.ER.24H PO SCH (09:33)
[2020-07-14] MEDS: Insulin LISPRO 300 UNITS/3 ML VIAL SUBQ SCH ×4 (09:34→19:56)
[2020-07-14] MEDS: Nystatin POWDER 30 GM BOTTLE TP SCH ×2 (09:35→19:57)
[2020-07-14] MEDS: Vancomycin 1,250 MG/262.5 ML IV.SOLN IVPB SCH ×2 (11:05→22:07)
[2020-07-14] MEDS: Insulin DETEMIR 100 UNIT/ML X5UNITS SUBQ SCH (19:50)
[2020-07-15] MEDS: *HR* Heparin 5,000 UNIT/ML VIAL SQ SCH ×3 (06:23→21:46)
[2020-07-15 07:31] LABS: Hematocrit 37.1 % (37.5-50.1); Mean Corpuscular HGB Conc 32.3 g/dL (31.6-35.5); Mean Corpuscular Hemoglobin 30.7 pg (28.0-33.3); Mean Corpuscular Volume 94.9 fL (83.0-100.0); Platelet Count 368 K/mcL (140-400); Red Blood Count 3.91 M/mcL (4.19-5.50); Red Cell Distribution Width 15.1 % (11.5-14.5); White Blood Count 8.7 K/mcL (4.3-11.1)
[2020-07-15 08:06] LABS: BUN/Creatinine Ratio 32 (6-26); Blood Urea Nitrogen 29 mg/dL (8-23); Calcium 8.5 mg/dL (8.6-10.3); Carbon Dioxide 25 mEq/L (23-29); Chloride 104 mEq/L (98-107); Glucose 174 mg/dL (70-105); Osmolality,Calculated 290 (280-300); Potassium 4.2 mEq/L (3.5-5.1); Sodium 135 mEq/L (136-145); eGFR For African Americans > 60 (> 60); eGFR For Non-African Americans > 60 (> 60)
[2020-07-15] MEDS: Nicotine 21 MG PATCH.TD24 TD SCH (09:10)
[2020-07-15] MEDS: polyethylene glycoL 3350 17 GM POWD.PACK PO SCH (09:14)
[2020-07-15] MEDS: Nystatin POWDER 30 GM BOTTLE TP SCH ×2 (09:15→21:38)
[2020-07-15] MEDS: Metoprolol XL (24 HR) Succ 25 MG TAB.ER.24H PO SCH (09:16)
[2020-07-15] MEDS: Famotidine 20 MG TABLET PO SCH ×2 (09:17→17:44)
[2020-07-15] MEDS: lisinopriL 10 MG TABLET PO SCH (09:17)
[2020-07-15] MEDS: clonazePAM 1 MG TABLET PO SCH ×2 (09:18→21:25)
[2020-07-15] MEDS: GlipiZIDE 5 MG TABLET PO SCH ×2 (09:18→17:45)
[2020-07-15] MEDS: Pregabalin 50 MG CAPSULE PO SCH ×3 (09:19→21:24)
[2020-07-15] MEDS: levoFLOXacin 750 MG/150 ML 750 MG/150 ML BAG IVPB SCH (09:19)
[2020-07-15] MEDS: Insulin LISPRO 300 UNITS/3 ML VIAL SUBQ SCH ×4 (09:21→21:39)
[2020-07-15] MEDS: *HR* OxyCODONE Immed Rel 5 MG TABLET PO PRN ×2 (11:15→21:47)
[2020-07-15] MEDS: Vancomycin 1,250 MG/262.5 ML IV.SOLN IVPB SCH ×2 (13:53→21:24)
[2020-07-15] MEDS: Insulin DETEMIR 100 UNIT/ML X5UNITS SUBQ SCH (21:46)
[2020-07-16 04:18] LABS: Hematocrit 35.2 % (37.5-50.1); Hemoglobin 11.5 g/dL (12.9-16.9); Mean Corpuscular HGB Conc 32.7 g/dL (31.6-35.5); Mean Corpuscular Hemoglobin 30.7 pg (28.0-33.3); Mean Corpuscular Volume 94.1 fL (83.0-100.0); Mean Platelet Volume 11.1 fL (9.4-12.4); Platelet Count 345 K/mcL (140-400); Red Blood Count 3.74 M/mcL (4.19-5.50); Red Cell Distribution Width 15.1 % (11.5-14.5)
[2020-07-16 04:35] LABS: BUN/Creatinine Ratio 32 (6-26); Blood Urea Nitrogen 31 mg/dL (8-23); Calcium 8.7 mg/dL (8.6-10.3); Carbon Dioxide 27 mEq/L (23-29); Chloride 105 mEq/L (98-107); Glucose 165 mg/dL (70-105); Osmolality,Calculated 294 (280-300); Potassium 4.4 mEq/L (3.5-5.1); Sodium 137 mEq/L (136-145); eGFR For African Americans > 60 (> 60); eGFR For Non-African Americans > 60 (> 60)
[2020-07-16] MEDS: *HR* Heparin 5,000 UNIT/ML VIAL SQ SCH ×3 (05:51→21:55)
[2020-07-16] MEDS: Famotidine 20 MG TABLET PO SCH ×2 (07:54→17:28)
[2020-07-16] MEDS: *HR* OxyCODONE Immed Rel 5 MG TABLET PO PRN (07:55)
[2020-07-16] MEDS: Insulin LISPRO 300 UNITS/3 ML VIAL SUBQ SCH ×4 (08:05→21:55)
[2020-07-16] MEDS: levoFLOXacin 750 MG/150 ML 750 MG/150 ML BAG IVPB SCH (08:33)
[2020-07-16] MEDS: GlipiZIDE 5 MG TABLET PO SCH ×2 (09:54→17:27)
[2020-07-16] MEDS: Pregabalin 50 MG CAPSULE PO SCH ×3 (09:57→21:53)
[2020-07-16] MEDS: clonazePAM 1 MG TABLET PO SCH ×2 (09:57→21:54)
[2020-07-16] MEDS: Nicotine 21 MG PATCH.TD24 TD SCH (09:58)
[2020-07-16] MEDS: polyethylene glycoL 3350 17 GM POWD.PACK PO SCH (09:58)
[2020-07-16] MEDS: lisinopriL 10 MG TABLET PO SCH (09:59)
[2020-07-16] MEDS: Metoprolol XL (24 HR) Succ 25 MG TAB.ER.24H PO SCH (10:00)
[2020-07-16] MEDS: Vancomycin 1,250 MG/262.5 ML IV.SOLN IVPB SCH ×2 (10:25→21:56)
[2020-07-16] MEDS: Nystatin POWDER 30 GM BOTTLE TP SCH ×2 (10:45→23:48)
[2020-07-16] MEDS: tiZANidine 4 MG TABLET PO PRN (21:54)
[2020-07-16] MEDS: *HR* HYDROcodone/Acet 5/325 mg TABLET PO PRN (21:54)
[2020-07-16] MEDS: Insulin DETEMIR 100 UNIT/ML X5UNITS SUBQ SCH (21:55)
[2020-07-17 05:13] LABS: Mean Corpuscular HGB Conc 32.4 g/dL (31.6-35.5); Mean Corpuscular Hemoglobin 30.8 pg (28.0-33.3); Mean Corpuscular Volume 95.1 fL (83.0-100.0); Platelet Count 301 K/mcL (140-400); Red Blood Count 3.89 M/mcL (4.19-5.50); Red Cell Distribution Width 15.5 % (11.5-14.5); White Blood Count 8.1 K/mcL (4.3-11.1)
[2020-07-17 05:29] LABS: BUN/Creatinine Ratio 32 (6-26); Blood Urea Nitrogen 28 mg/dL (8-23); Calcium 8.8 mg/dL (8.6-10.3); Carbon Dioxide 29 mEq/L (23-29); Chloride 103 mEq/L (98-107); Glucose 224 mg/dL (70-105); Osmolality,Calculated 290 (280-300); Potassium 4.2 mEq/L (3.5-5.1); Sodium 134 mEq/L (136-145); Vancomycin,Trough 15 mcg/mL (5-10); eGFR For African Americans > 60 (> 60); eGFR For Non-African Americans > 60 (> 60)
[2020-07-17] MEDS: *HR* HYDROcodone/Acet 5/325 mg TABLET PO PRN (06:05)
[2020-07-17] MEDS: *HR* Heparin 5,000 UNIT/ML VIAL SQ SCH (06:05)
[2020-07-17 07:57] VITALS: BP 124/82
[2020-07-17] MEDS: Nicotine 21 MG PATCH.TD24 TD SCH (08:15)
[2020-07-17] MEDS: polyethylene glycoL 3350 17 GM POWD.PACK PO SCH (08:15)
[2020-07-17] MEDS: clonazePAM 1 MG TABLET PO SCH (08:17)
[2020-07-17] MEDS: Metoprolol XL (24 HR) Succ 25 MG TAB.ER.24H PO SCH (08:18)
[2020-07-17] MEDS: lisinopriL 10 MG TABLET PO SCH (08:18)
[2020-07-17] MEDS: Famotidine 20 MG TABLET PO SCH (08:18)
[2020-07-17] MEDS: Pregabalin 50 MG CAPSULE PO SCH ×2 (08:19→14:01)
[2020-07-17] MEDS: GlipiZIDE 5 MG TABLET PO SCH (08:19)
[2020-07-17] MEDS: levoFLOXacin 750 MG/150 ML 750 MG/150 ML BAG IVPB SCH (08:20)
[2020-07-17] MEDS: Insulin LISPRO 300 UNITS/3 ML VIAL SUBQ SCH ×2 (08:22→12:02)
[2020-07-17] MEDS: Vancomycin 1,250 MG/262.5 ML IV.SOLN IVPB SCH (12:06)
[2020-07-17] MEDS: Nystatin POWDER 30 GM BOTTLE TP SCH (13:56)
[2020-07-17] MEDS: *HR* OxyCODONE Immed Rel 5 MG TABLET PO PRN (14:01)
== END 2020-07-17 14:25 | disposition home health service (06) | DRG 617 ==
LOC: EMEROOARM 11:27 → 3NENU 11:27 → SUATTDRO 07-05 08:18
PROVIDERS: ADMIT Internal Medicine; ATTEND Internal Medicine

== ENCOUNTER 2020-10-12 08:05 | Inpatient (IN) ==
[2020-10-12] MEDS ORDERED: *HR* Meperidine 25 MG/ML SYRINGE IVP PRN (08:55)
[2020-10-12] MEDS ORDERED: *HR* HYDROmorphone PF 0.5 MG/0.5 ML SYRINGE IVP PRN (08:55)
[2020-10-12] MEDS ORDERED: Ondansetron 4 MG/2 ML VIAL IVP PRN ×3 (08:55→21:33)
[2020-10-12] MEDS ORDERED: Acetaminophen IV 1,000 MG/100 ML BAG IVPB ONE (08:55)
[2020-10-12 08:58] LABS: Basophils # 0.1 K/mcL (0.0-0.2); Basophils % 0.8 %; Eosinophils # 0.1 K/mcL (0.0-0.6); Eosinophils % 1.4 %; Hematocrit 43.9 % (37.5-50.1); Hemoglobin 13.9 g/dL (12.9-16.9); Immature Granulocytes % 0.3 % (0-4); Lymphocytes # 2.7 K/mcL (0.6-4.6); Lymphocytes % 30.8 %; Mean Corpuscular HGB Conc 31.7 g/dL (31.6-35.5); Mean Corpuscular Hemoglobin 30.9 pg (28.0-33.3); Mean Corpuscular Volume 97.6 fL (83.0-100.0); Mean Platelet Volume 10.9 fL (9.4-12.4); Monocytes # 0.7 K/mcL (0.0-1.3); Monocytes % 7.9 %; Neutrophils # 5.1 K/mcL (1.6-8.9); Platelet Count 313 K/mcL (140-400); Segmented Neutrophils % 58.8 %; White Blood Count 8.6 K/mcL (4.3-11.1)
[2020-10-12 09:09] LABS: Activated Partial Thrombo Time 36.6 Seconds (26.0-36.0)
[2020-10-12] MEDS: Ringers Solution, Lactated 1,000 ML IVC SCH ×2 (09:10→21:05)
[2020-10-12] MEDS ORDERED: CeFAZolin Syr 2,000MG/20 ML 2,000 MG/20 ML SYRINGE IVPB ONE (09:11)
[2020-10-12 09:21] LABS: BUN/Creatinine Ratio 18 (6-26); Blood Urea Nitrogen 18 mg/dL (8-23); Calcium 9.4 mg/dL (8.6-10.3); Carbon Dioxide 25 mEq/L (23-29); Chloride 104 mEq/L (98-107); Glucose 195 mg/dL (70-105); Osmolality,Calculated 293 (280-300); Potassium 3.9 mEq/L (3.5-5.1); Sodium 138 mEq/L (136-145); eGFR For African Americans > 60 (> 60); eGFR For Non-African Americans > 60 (> 60)
[2020-10-12] MEDS ORDERED: *HR* Midazolam HCl 2 MG/2 ML VIAL ONE ×2 (09:56→14:25)
[2020-10-12] MEDS ORDERED: *HR* FentaNYL (PF) 100 MCG/2 ML VIAL ONE ×2 (09:56→14:25)
[2020-10-12] MEDS ORDERED: *HR* Propofol 200 MG/20 ML VIAL IVP ONE (09:56)
[2020-10-12] MEDS ORDERED: *HR* Rocuronium Bromide 50 MG/5 ML VIAL ONE (09:57)
[2020-10-12] MEDS ORDERED: *HR* Succinylcholine 200 MG/10 ML VIAL IVP ONE (09:57)
[2020-10-12] MEDS ORDERED: Lidocaine -MPF 2% 2 ML VIAL ONE (09:57)
[2020-10-12] MEDS ORDERED: Lidocaine HCL 4 ML Topical Solution (Laryng-O-Jet Kit Sterile Pak) TP ONE (09:57)
[2020-10-12] MEDS ORDERED: Ondansetron 4 MG/2 ML VIAL ONE (09:57)
[2020-10-12] MEDS ORDERED: Heparin 1,000 UNITS/500 mL 0 ML ONE (11:10)
[2020-10-12 11:37] LABS: Adenovirus Not Detected (Not Detect); Bordetella Pertussis Not Detected (Not Detect); Chlamydophila pneumoniae Not Detected (Not Detect); Coronavirus 229E Not Detected (Not Detect); Coronavirus HKU1 Not Detected (Not Detect); Coronavirus NL63 Not Detected (Not Detect); Coronavirus OC43 Not Detected (Not Detect); Human Metapneumovirus Not Detected (Not Detect); Human Rhinovirus/Enterovirus Not Detected (Not Detect); Influenza A Subtype 2009 H1 Not Detected (Not Detect); Influenza B Not Detected (Not Detect); Mycoplasma pneumoniae Not Detected (Not Detect); Parainfluenza Virus 1 Not Detected (Not Detect); Parainfluenza Virus 2 Not Detected (Not Detect); Parainfluenza Virus 3 Not Detected (Not Detect); Parainfluenza Virus 4 Not Detected (Not Detect); Respiratory Syncytial Virus Not Detected (Not Detect); SARS-CoV-2 Not Detected (Not Detect)
[2020-10-12] MEDS ORDERED: Vancomycin 1,000 MG, Sodium Chloride IRRigation 1,000 ML IR ONE (12:35)
[2020-10-12] MEDS ORDERED: Vancomycin 1,000 MG VIAL ONE (13:42)
[2020-10-12] MEDS ORDERED: Heparin 1,000 UNITS/500 mL 1,000 ML ONE (13:42)
[2020-10-12] MEDS ORDERED: *HR* Heparin 5,000 UNIT/ML VIAL ONE (15:18)
[2020-10-12] MEDS ORDERED: Sugammadex Sodium 200 MG/2 ML VIAL IV ONE (17:45)
[2020-10-12] MEDS ORDERED: Protamine Sulfate 50 MG/5 ML VIAL IVP ONE (18:08)
[2020-10-12] MEDS ORDERED: *HR* HYDROMORPHONE 2 MG/ML VIAL ONE (18:50)
[2020-10-12] MEDS ORDERED: *HR* Labetalol 20 MG/4 ML SYRINGE IVP PRN ×2 (19:12→21:33)
[2020-10-12] MEDS ORDERED: *HR* Labetalol 20 MG/4 ML SYRINGE IVP ONE (19:14)
[2020-10-12] MEDS ORDERED: *HR* OxyCODONE Immed Rel 5 MG TABLET PO PRN (19:18)
[2020-10-12] MEDS ORDERED: *HR* HYDROmorphone (PF) 1 MG/ML SYRINGE ONE (19:24)
[2020-10-12] MEDS: *HR* HYDROmorphone PF 0.5 MG/0.5 ML SYRINGE IVP PRN ×2 (19:24→19:34)
[2020-10-12] MEDS ORDERED: Acetaminophen 325 MG TABLET PO PRN (21:33)
[2020-10-12] MEDS ORDERED: Naloxone 0.4 MG/ML INJ IVP PRN (21:33)
[2020-10-12] MEDS ORDERED: tiZANidine 4 MG TABLET PO PRN ×2 (21:33→21:36)
[2020-10-12] MEDS: Famotidine 20 MG TABLET PO SCH (21:55)
[2020-10-12] MEDS: *HR* HYDROcodone/Acet 5/325 mg TABLET PO PRN (21:55)
[2020-10-12] MEDS: clonazePAM 1 MG TABLET PO SCH (21:55)
[2020-10-12] MEDS: GlipiZIDE 5 MG TABLET PO SCH (21:55)
[2020-10-12] MEDS: CeFAZolin 2 GM/120 ML BAG IVPB SCH (23:39)
[2020-10-13] MEDS: *HR* OxyCODONE Immed Rel 5 MG TABLET PO PRN ×4 (00:04→22:34)
[2020-10-13] MEDS: Nicotine 21 MG PATCH.TD24 TD SCH (00:17)
[2020-10-13 03:40] LABS: Basophils % 0.2 %; Immature Granulocytes % 0.6 % (0-4); Lymphocytes # 1.1 K/mcL (0.6-4.6); Lymphocytes % 9.3 %; Mean Corpuscular HGB Conc 32.1 g/dL (31.6-35.5); Mean Corpuscular Hemoglobin 31.1 pg (28.0-33.3); Mean Corpuscular Volume 96.8 fL (83.0-100.0); Mean Platelet Volume 11.3 fL (9.4-12.4); Monocytes # 0.7 K/mcL (0.0-1.3); Monocytes % 6.2 %; Neutrophils # 9.5 K/mcL (1.6-8.9); Platelet Count 243 K/mcL (140-400); Red Blood Count 3.41 M/mcL (4.19-5.50); Red Cell Distribution Width 16.6 % (11.5-14.5); Segmented Neutrophils % 83.7 %; White Blood Count 11.4 K/mcL (4.3-11.1)
[2020-10-13 03:41] LABS: Hemoglobin 10.6 g/dL (12.9-16.9)
[2020-10-13 04:01] LABS: BUN/Creatinine Ratio 17 (6-26); Blood Urea Nitrogen 14 mg/dL (8-23); Calcium 7.9 mg/dL (8.6-10.3); Carbon Dioxide 25 mEq/L (23-29); Chloride 105 mEq/L (98-107); Glucose 316 mg/dL (70-105); Osmolality,Calculated 295 (280-300); Potassium 4.7 mEq/L (3.5-5.1); Sodium 136 mEq/L (136-145); eGFR For African Americans > 60 (> 60); eGFR For Non-African Americans > 60 (> 60)
[2020-10-13] MEDS: *HR* Metformin 500 MG TABLET PO SCH ×2 (07:36→19:37)
[2020-10-13] MEDS: Metoprolol XL (24 HR) Succ 25 MG TAB.ER.24H PO SCH (07:36)
[2020-10-13] MEDS: GlipiZIDE 5 MG TABLET PO SCH ×2 (07:36→19:37)
[2020-10-13] MEDS: Pregabalin 50 MG CAPSULE PO SCH ×3 (07:37→19:38)
[2020-10-13] MEDS: clonazePAM 1 MG TABLET PO SCH ×2 (07:37→19:38)
[2020-10-13] MEDS: Aspirin Enteric Coated 325 MG Tablet PO SCH (07:37)
[2020-10-13] MEDS: Famotidine 20 MG TABLET PO SCH ×2 (07:37→19:37)
[2020-10-13] MEDS: lisinopriL 10 MG TABLET PO SCH (07:37)
[2020-10-13] MEDS: CeFAZolin 2 GM/120 ML BAG IVPB SCH ×2 (07:38→16:29)
[2020-10-13] MEDS: *HR* HYDROcodone/Acet 5/325 mg TABLET PO PRN ×2 (13:19→19:38)
[2020-10-14] MEDS: Nicotine 21 MG PATCH.TD24 TD SCH (00:08)
[2020-10-14] MEDS: clonazePAM 1 MG TABLET PO SCH (07:55)
[2020-10-14] MEDS: Famotidine 20 MG TABLET PO SCH (07:56)
[2020-10-14] MEDS: Aspirin Enteric Coated 325 MG Tablet PO SCH (07:56)
[2020-10-14] MEDS: GlipiZIDE 5 MG TABLET PO SCH (07:56)
[2020-10-14] MEDS: *HR* Metformin 500 MG TABLET PO SCH (07:56)
[2020-10-14] MEDS: lisinopriL 10 MG TABLET PO SCH (07:56)
[2020-10-14] MEDS: Pregabalin 50 MG CAPSULE PO SCH (07:56)
[2020-10-14] MEDS: Metoprolol XL (24 HR) Succ 25 MG TAB.ER.24H PO SCH (07:57)
[2020-10-14] MEDS: *HR* HYDROcodone/Acet 5/325 mg TABLET PO PRN (07:59)
[2020-10-14 11:30] VITALS: BP 133/64
== END 2020-10-14 17:00 | disposition home health service (06) | DRG 254 ==
LOC: SAMDAY 08:05 → 2NNU 20:26
PROVIDERS: ADMIT Surgery Vascular Surgery; ATTEND Surgery Vascular Surgery